=== PATIENT | female | born 2000 | race Two or more races ===

== ENCOUNTER 2023-08-28 14:52 | Observation (INO) | payer MEDICAID ==
[~2023-08-28] VITALS: Ht 160 cm; Wt 99.8 kg
[2023-08-28 16:27] LABS: Fern Testing Negative
[2023-08-28] MEDS ORDERED: PREN1TAB71 OR (17:22)
== END 2023-08-28 17:35 | disposition home or self-care (01) ==
LOC: LDRP 14:52 → UNDOADMOB 14:52 → LDRP 15:09
PROVIDERS: ADMIT Obstetrics & Gynecology; ATTEND Obstetrics & Gynecology
DX: O42.913 Preterm premature rupture of membranes, unspecified as to length of time between rupture and onset of labor, third trimester (principal); Z3A.29 29 weeks gestation of pregnancy
CPT/HCPCS: 59025; 76815; 81002; 84112; G0378; Q0114

== ENCOUNTER 2023-09-27 09:30 | Observation (INO) | payer MEDICAID ==
[~2023-09-27 09:30] MED LIST: PREN1TAB71 OR
[2023-09-28] MEDS ORDERED: METF-370 PO (14:31)
== END 2023-09-28 15:35 | disposition home or self-care (01) ==
LOC: UNDOADMOB 09-28 12:53 → LDRP 09-28 12:53
PROVIDERS: ADMIT Obstetrics & Gynecology; ATTEND Obstetrics & Gynecology
DX: O24.419 Gestational diabetes mellitus in pregnancy, unspecified control (principal); Z3A.33 33 weeks gestation of pregnancy
CPT/HCPCS: 59025; 76818; 81002; 82948; 82962; 94760; G0378

== ENCOUNTER 2023-10-02 08:07 | Observation (INO) | payer MEDICAID ==
[~2023-10-02 08:07] MED LIST changes: +METF-370 PO
== END 2023-10-02 09:53 | disposition home or self-care (01) ==
LOC: LDRP 08:08 → UNDOADMOB 08:08 → LDRP 08:11 → UNDODISOB 09:53
PROVIDERS: ADMIT Obstetrics & Gynecology; ATTEND Obstetrics & Gynecology
DX: O24.419 Gestational diabetes mellitus in pregnancy, unspecified control (principal); Z3A.34 34 weeks gestation of pregnancy
CPT/HCPCS: 59025; 76818; 81002; 82948; 82962; G0378

== ENCOUNTER 2023-10-05 07:38 | Observation (INO) | payer MEDICAID | END 2023-10-12 17:07 | disposition home or self-care (01) | LOC: LDRP 10-12 15:04 → UNDOADMOB 10-12 15:04 → LDRP 10-12 15:15 | PROVIDERS: ADMIT Obstetrics & Gynecology; ATTEND Obstetrics & Gynecology | DX: O24.419 Gestational diabetes mellitus in pregnancy, unspecified control (principal); Z3A.35 35 weeks gestation of pregnancy | CPT/HCPCS: 59025; 76818; 81002; 82948; 82962; 94760; G0378 ==

== ENCOUNTER 2023-10-09 20:31 | Observation (INO) | payer MEDICAID | END 2023-10-09 21:52 | disposition home or self-care (01) | LOC: LDRP 20:31 | PROVIDERS: ADMIT Obstetrics & Gynecology; ATTEND Obstetrics & Gynecology | DX: O24.419 Gestational diabetes mellitus in pregnancy, unspecified control (principal); Z3A.35 35 weeks gestation of pregnancy | CPT/HCPCS: 59025; 76818; 81002; 82948; 82962; 94760; G0378 ==

== ENCOUNTER → 2023-10-11 | Outpatient (CLI) | payer MEDICAID ==
[2023-10-11 10:52] LABS: Basophils # (auto) 0 10 ^3/uL (0-0.2); Basophils % (auto) 0.1 % (0.0-2.0); Eosinophils # (auto) 0 10 ^3/uL (0-0.8); Eosinophils % (auto) 0.5 % (0.0-7.0); Hematocrit 35.8 % (36.0-46.0); Hemoglobin 12.1 g/dL (12.2-16.2); Lymphocytes # (auto) 1.8 10 ^3/uL (0.4-5.4); Lymphocytes % (auto) 19.2 % (10.0-50.0); Mean Corpuscular Hemoglobin 27.7 pg (28.0-32.0); Mean Corpuscular Hgb Conc. 33.8 g/dL (32.0-36.0); Mean Corpuscular Volume 81.8 fL (80.0-100.0); Monocytes # (auto) 0.7 10 ^3/uL (0-1.3); Monocytes % (auto) 7.6 % (0.0-12.0); Neutrophils # (auto) 6.9 10 ^3/uL (1.6-8.6); Neutrophils % (auto) 72.6 % (37.0-80.0); Red Blood Cells 4.37 10^6/uL (4.0-5.20); Red Cell Distribution Width 14.6 % (11.8-14.3); White Blood Cell 9.5 10^3/uL (4.4-10.8)
[2023-10-12 07:06] LABS: RPR Non Reactive (Non Reactive)
[2023-10-12 22:06] LABS: Chlamydia Trachomatis, NAA Negative (Negative); Neisseria gonorrhoeae, NAA Negative (Negative)
== END | disposition home or self-care (01) ==
LOC: LAB 10:37
PROVIDERS: ATTEND Obstetrics & Gynecology
DX: Z34.80 Encounter for supervision of other normal pregnancy, unspecified trimester (principal); Z3A.00 Weeks of gestation of pregnancy not specified; Z72.51 High risk heterosexual behavior
CPT/HCPCS: 36415; 85025; 86592

== ENCOUNTER 2023-10-17 18:50 | Observation (INO) | payer MEDICAID ==
[~2023-10-17] VITALS: Ht 160 cm; Wt 99.3 kg
== END 2023-10-17 20:04 | disposition home or self-care (01) ==
LOC: LDRP 18:50
PROVIDERS: ADMIT Obstetrics & Gynecology; ATTEND Obstetrics & Gynecology
DX: O24.419 Gestational diabetes mellitus in pregnancy, unspecified control (principal); Z79.84 Long term (current) use of oral hypoglycemic drugs; Z3A.36 36 weeks gestation of pregnancy
CPT/HCPCS: 59025; 76818; 81002; 82948; 82962; 94760; G0378

== ENCOUNTER 2023-10-20 19:05 | Observation (INO) | payer MEDICAID | END 2023-10-20 20:13 | disposition home or self-care (01) | LOC: LDRP 19:05 | PROVIDERS: ADMIT Obstetrics & Gynecology; ATTEND Obstetrics & Gynecology | DX: O24.419 Gestational diabetes mellitus in pregnancy, unspecified control (principal); Z3A.36 36 weeks gestation of pregnancy | CPT/HCPCS: 59025; 76818; 81002; 82948; 82962; 94760; G0378 ==

== ENCOUNTER 2023-10-24 19:00 | Observation (INO) | payer MEDICAID | END 2023-10-24 21:01 | disposition home or self-care (01) | LOC: LDRP 19:00 | PROVIDERS: ADMIT Obstetrics & Gynecology; ATTEND Obstetrics & Gynecology | DX: O24.419 Gestational diabetes mellitus in pregnancy, unspecified control (principal); Z3A.37 37 weeks gestation of pregnancy | CPT/HCPCS: 59025; 76818; 81002; 82948; 82962; 94760; G0378 ==

== ENCOUNTER 2023-10-27 08:07 | Observation (INO) | payer MEDICAID | END 2023-10-27 09:41 | disposition home or self-care (01) | LOC: UNDOADMOB 08:07 → LDRP 08:07 | PROVIDERS: ADMIT Obstetrics & Gynecology; ATTEND Obstetrics & Gynecology | DX: O24.419 Gestational diabetes mellitus in pregnancy, unspecified control (principal); Z3A.37 37 weeks gestation of pregnancy | CPT/HCPCS: 59025; 76818; 81002; 82948; 82962; 94760; G0378 ==

== ENCOUNTER 2023-11-02 03:30 | Inpatient (IN) | payer MEDICAID ==
[~2023-11-02] VITALS: Ht 160 cm; Wt 101.6 kg
[2023-11-02] MEDS: LACTATED RINGER'S 1,000 ML IV SCH (07:00)
[2023-11-02] MEDS ORDERED: BUTORPHANOL TARTRATE 2 MG/1 ML VIAL IV PRN ×2 (07:00)
[2023-11-02 07:45] LABS: Basophils # (auto) 0 10 ^3/uL (0-0.2); Basophils % (auto) 0.1 % (0.0-2.0); Eosinophils # (auto) 0 10 ^3/uL (0-0.8); Eosinophils % (auto) 0.2 % (0.0-7.0); Hematocrit 37.4 % (36.0-46.0); Hemoglobin 12.4 g/dL (12.2-16.2); Lymphocytes % (auto) 17.8 % (10.0-50.0); Mean Corpuscular Hemoglobin 27.3 pg (28.0-32.0); Mean Corpuscular Hgb Conc. 33.3 g/dL (32.0-36.0); Monocytes # (auto) 0.7 10 ^3/uL (0-1.3); Monocytes % (auto) 6.4 % (0.0-12.0); Neutrophils # (auto) 8.7 10 ^3/uL (1.6-8.6); Neutrophils % (auto) 75.5 % (37.0-80.0); Nucleated Red Blood Cells % 0.2 %; Red Blood Cells 4.56 10^6/uL (4.0-5.20); White Blood Cell 11.5 10^3/uL (4.4-10.8)
[2023-11-02 07:49] LABS: Urine Bacteria FEW /hpf (None Seen); Urine Blood Negative /uL (Negative); Urine Clarity Turbid (Clear); Urine Color Light-Yellow (Yellow); Urine Mucus FEW (None Seen); Urine Protein, UAD Negative (Negative); Urine Specific Gravity 1.014 (1.001-1.035); Urine Urobilinogen Normal (Negative); Urine WBC 3 /hpf (0 - 5); Urine pH 6.5 (5.0-9.0)
[2023-11-02 08:01] LABS: Amphetamine Screen, Urine Neg (NEGATIVE); Barbiturate Scree,Urine Neg (NEGATIVE); Benzodiazephine Screen, Urine Neg (NEGATIVE); Cocaine Screen, Urine Neg (NEGATIVE); Opiate Scree,Urine Neg (NEGATIVE)
[2023-11-02 08:02] LABS: Cannabinoid Screen, Urine Neg (NEGATIVE); Phencyclidine Screen, Urine Neg (NEGATIVE)
[2023-11-02 08:03] LABS: Alanine Aminotransferase 14 U/L (7-40); Albumin 3.8 g/dL (3.2-4.8); Alkaline Phosphatase 150 U/L (46-116); Anion Gap 7 (5-15); Aspartate Aminotransferase 14 U/L (13-40); BUN/Creatinine Ratio 13.7 (10.0-20.0); Bilirubin, Total 0.4 mg/dL (0.2-1.0); Blood Urea Nitrogen 7 mg/dL (9-23); Carbon Dioxide 19 mmol/L (20-30); Chloride 109 mmol/L (98-107); Glucose 91 mg/dL (74-106); Potassium 3.6 mmol/L (3.5-5.1); Sodium 135 mmol/L (136-145); Total Protein 6.3 g/dL (5.7-8.2)
[2023-11-02] MEDS ORDERED: TERBUTALINE SULFATE 1 MG/ML 1ML VIAL SC PRN (08:15)
[2023-11-02] MEDS: WITCH HAZEL-GLYCERIN PAD TOP PRN (08:16)
[2023-11-02] MEDS: PHISODERM TOP SOLN 240ML BTL TOP PRN (08:16)
[2023-11-02] MEDS: DERMOPLAST 60ML BOTTLE TOP PRN (08:16)
[2023-11-02] MEDS: LIDOCAINE 2%HCL (LOCAL ANESTH.) INJ 20ML MDV IJ PRN (08:17)
[2023-11-02 08:21] LABS: Partial Thromboplastin Time 26.3 SEC (24.5-34.5); Prothrombin Time 10.6 sec (9.3-11.8)
[2023-11-02] MEDS ORDERED: LACT. RINGERS/OXYTOCIN 20UNITS 500 ML IV ONE (08:45)
[2023-11-02] MEDS: fentaNYL CITRATE 100 MCG/2 ML VL IV ONE (09:27)
[2023-11-02] MEDS: LACT. RINGERS/OXYTOCIN 20UNITS 1,000 ML IV SCH (09:36)
[2023-11-02] MEDS: LACT. RINGERS/OXYTOCIN 20UNITS 500 ML IV ONE (10:55)
[2023-11-02] MEDS: METHYLERGONOVINE MALEATE 0.2 MG/ML AMP IM ONE ×2 (10:59→11:00)
[2023-11-02] MEDS: ceFAZolin 2 GM/D5W50ml 50 ML IV ONE (11:13)
[2023-11-02] MEDS: ACETAMINOPHEN 325 MG TAB PO PRN (12:08)
[2023-11-02 14:50] VITALS: BP 105/54; PULSE 79; RESP 15; TEMP 98.5; O2SAT 98
[2023-11-02 19:00] VITALS: BP 118/57; PULSE 78; RESP 18; TEMP 98.1; O2SAT 97
[2023-11-02] MEDS: DOCUSATE SOD 100 MG CAP PO SCH (21:58)
[2023-11-02 23:20] VITALS: BP 112/61; PULSE 80; RESP 17; TEMP 98.2; O2SAT 98
[2023-11-03] MEDS: IBUPROFEN 600 MG TAB PO PRN (02:55)
[2023-11-03 03:01] VITALS: BP 108/58; PULSE 76; RESP 16; TEMP 98.5; O2SAT 97
[2023-11-03 06:51] VITALS: BP 101/58; PULSE 70; RESP 16; TEMP 97.8; O2SAT 96
[2023-11-03 09:07] LABS: Basophils # (auto) 0 10 ^3/uL (0-0.2); Basophils % (auto) 0.2 % (0.0-2.0); Eosinophils # (auto) 0 10 ^3/uL (0-0.8); Eosinophils % (auto) 0.4 % (0.0-7.0); Hematocrit 33.8 % (36.0-46.0); Hemoglobin 11.2 g/dL (12.2-16.2); Lymphocytes # (auto) 2.8 10 ^3/uL (0.4-5.4); Lymphocytes % (auto) 22.8 % (10.0-50.0); Mean Corpuscular Hemoglobin 27.4 pg (28.0-32.0); Mean Corpuscular Hgb Conc. 33.2 g/dL (32.0-36.0); Mean Corpuscular Volume 82.6 fL (80.0-100.0); Monocytes # (auto) 1.1 10 ^3/uL (0-1.3); Monocytes % (auto) 8.7 % (0.0-12.0); Neutrophils # (auto) 8.3 10 ^3/uL (1.6-8.6); Neutrophils % (auto) 67.9 % (37.0-80.0); Red Blood Cells 4.09 10^6/uL (4.0-5.20); Red Cell Distribution Width 15.7 % (11.8-14.3); White Blood Cell 12.2 10^3/uL (4.4-10.8)
[2023-11-03] MEDS ORDERED: PRENATAL VITAMIN TAB PO SCH (10:00)
[2023-11-03 10:46] VITALS: BP 97/51; PULSE 69; RESP 16; TEMP 97.8; O2SAT 96
[2023-11-04 03:06] LABS: RPR Non Reactive (Non Reactive)
[2023-11-06 19:06] LABS: Treponema pallidum Ab (FTA-Ab) Non Reactive (Non Reactive)
== END 2023-11-03 12:55 | disposition home or self-care (01) | DRG 560 ==
LOC: UNDOADMOB 03:30 → LDRP 03:30 → OBSVTOIN 06:51 → INTOOBSV 06:51 → LDRP 07:37
PROVIDERS: ADMIT Obstetrics & Gynecology; ATTEND Obstetrics & Gynecology
PROC: 10E0XZZ Delivery of Products of Conception, External Approach (ICD-10-PCS; principal; 2023-11-02)
DX: O24.425 Gestational diabetes mellitus in childbirth, controlled by oral hypoglycemic drugs (principal); Z37.0 Single live birth; O60.14X0 Preterm labor third trimester with preterm delivery third trimester, not applicable or unspecified; R71.0 Precipitous drop in hematocrit; Z3A.38 38 weeks gestation of pregnancy
CPT/HCPCS: 36415; 59025; 59409; 76818; 80053; 80307; 81001; 81002; 82948; 82962; 85025; 85610; 85730; 86592; 86803; 86850; 86900; 86901; 94760; 96360; 96361; 96365; 96366; 96374; G0378; J2590